=== PATIENT | female | born 1970 | race Hispanic/Latino ===

== ENCOUNTER 2017-02-14 19:30 | Inpatient (IN) | payer OTHER ==
[~2017-02-14] VITALS: Ht 160 cm; Wt 83.7 kg
[2017-02-14 19:34] VITALS: BP 202/104; PULSE 73; RESP 18; O2SAT 97
--- NOTE | 2017-02-14 21:01 | ED.REPORT ---
HPI-Abd Pain F 40 and Over Date of Service Feb 14, 2017 ED Provider: Lita Zamora DO Pt is a 47 year old female with a history of HTN who presents to the ED complaining of abdominal pain onset this morning. She c/o associated nausea, vomiting (8x), and constipation. She denies any other symptoms. Nursing Notes Stated Complaint: STOMACH PAIN Chief Complaint: Female Abdominal Pain Nursing Notes Reviewed: Yes Allergies: Coded Allergies: No Known Allergies (Unverified Allergy, Unknown, 02/14/17) No Active Prescriptions or Reported Meds General Time Seen by MD: 21:01 Chief Complaint Abdominal pain Hx Obtained From: Patient Arrived By: Walk-in Sudden in Onset?: No Onset Occurred: 5 - 8 hours ago Symptom Duration: Since onset Location: : Diffuse Quality: Itching Radiation: : Does not radiate Severity: Current: Moderate Severity: Maximum: Moderate Recent Healthcare: No recent doctor visit, No recent hospitalization Similar Sx Previous: No Past Medical History Past Medical History Notes: Past Medical History 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 Physical Exam Vital Signs Vital Signs (First) Date Time Temp Pulse Resp B/P Pulse Ox O2 Delivery O2 Flow Rate FiO2 02/14/17 19:34 36.7 73 18 202/104 97 Room Air Initial VS: Reviewed Head / Eyes: Atraumatic, Normocephalic Extremities: Vascular intact, Neuro intact Skin: Warm, Dry, No cyanosis Neurologic: Alert, Oriented, Nonfocal Psychiatric: Mood/affect normal, Behavior normal General/Constitutional: Awake, Alert, Cooperative, Not toxic appearing Distress / Hydration: Positive: Distress moderate Tachy "ai"s and bravy "oh"s. Respiratory / Chest: Atraumatic, Breath sounds NL, Breath sounds = bilat Cardiovascular: Heart rate NL, Regular rhythm, Heart sounds NL Abdomen: Atraumatic Diffuse tenderness mainly in LLQ. Back: Atraumatic, Full range of motion Interpretation & Diagnostics Lab Results Interpretation Result Diagram: 02/14/17 2100 02/14/17 2100 Test 02/14/17 21:00 02/14/17 22:12 02/14/17 22:20 White Blood Count 20.2th/mm3 (3.8-10.1) Red Blood Count 4.88mil/mm3 (3.90-5.20) Hemoglobin 14.8g/dL (12.0-15.6) Hematocrit 41.0% (35.0-46.0) Mean Corpuscular Volume 84.0fL (81-100) Mean Corpuscular Hemoglobin 30.3pg (27.0-35.0) Mean Corpuscular Hemoglobin Concent 36.1% (32.0-37.0) Red Cell Distribution Width 12.7% (12.3-15.4) Platelet Count 232bil/L (150-400) Neutrophils (%) (Auto) 89.3% (40-74) Lymphocytes (%) (Auto) 5.8% (14-46) Monocytes (%) (Auto) 4.6% (4-12) Eosinophils (%) (Auto) 0% (0-5) Basophils (%) (Auto) 0% (0-3) Sodium Level 134mEq/L (134-144) Potassium Level 3.0mEq/L (3.5-5.2) Chloride Level 95mEq/L (97-108) Carbon Dioxide Level 23mmol/L (18-29) Blood Urea Nitrogen 8mg/dL (6-24) Creatinine 0.54mg/dL (0.57-1.00) Estimat Glomerular Filtration Rate 175mL/min (>59) Glucose Level 152mg/dL (60-99) Calcium Level 8.8mg/dL (8.5-10.1) Magnesium Level 1.6mg/dL (1.6-2.6) Total Bilirubin 0.8mg/dL (0.0-1.2) Aspartate Amino Transf (AST/SGOT) 20U/L (0-50) Alanine Aminotransferase (ALT/SGPT) 22U/L (0-32) Alkaline Phosphatase 102U/L (25-150) Total Protein 7.5g/dL (6.4-8.4) Albumin 3.9g/dL (3.4-5.0) Lipase 12U/L (13-60) Hold Campuzano Top Tube Received (Received) Hold Urine Received (Received) Urine Color Yellow (YELLOW) Urine Appearance Clear (CLEAR,HAZY) Urine pH 7.0 (5.0-8.0) Urine Specific [place] 1.015 (1.003-1.035) Urine Protein 30mg/dL (NEG,TRACE) Urine Glucose (UA) Negativemg/dL (NEGATIVE) Urine Ketones 15mg/dL (NEGATIVE) Urine Occult Blood Small (NEGATIVE) Urine Nitrite Negative (NEGATIVE) Urine Bilirubin Negative (NEGATIVE) Urine Urobilinogen Normalmg/dL (NORMAL) Urine Leukocyte Esterase Negative (NEGATIVE) Urine RBC 3-10/hpf (0-2) Urine WBC 0-5/hpf (0-5) Urine Epithelial Cells Occasional/hpf (NONE-MOD) Urine Crystals None seen (NONE SEEN) Urine Bacteria Few/hpf (NONE-FEW) Urine Hyaline Casts Rare/lpf (NONE) Urine Granular Casts None seen (NONE SEEN) Urine Waxy Casts None seen (NONE SEEN) Urine Red Blood Cell Casts None seen (NONE SEEN) Urine White Blood Cell Casts None seen (NONE SEEN) Urine Mucus None seen (None Seen) Urine Trichomonas None seen (NONE SEEN) Urine Yeast None (NONE SEEN) Urinalysis Comment None Urine Culture Reflexed Not indicated CT Abd / Pelvis Interpretation Acute non-perforated appendicitis Interpretation / Wet Read by: Interpret - Radiologist, Discussed w radiologist Re-Eval/Medical Decision Med Decision/Clinical Course 47-year-old female presents with insidious onset right lower quadrant abdominal pain. Seemed to start last night and possibly this morning. She presented with moderate to severe tenderness. No clinical peritonitis however. White count was 24,[address] scan showed acute nonperforated appendicitis. Mrs. Abbott was fluid resuscitated. Her pain was adequately treated. She received IV Zosyn. I consulted with Dr. Boogie. The plan will be admission for appendectomy in the morning. I explained this to Mrs. Abbott and her family. Her daughter served as otr driver. I will also use the otr driver service. Source of Hx: Old records Re-Evaluation/Progress : Time of Eval: 22:53 )( Re-Eval Abdomen: Soft Re-Evaluation/Progress Note: Pt rechecked. Informed pt of plan for admission. Pt understands and agrees with plan for admission. All questions were answered. Consultation #1: Call Returned at: 22:55 Manager Market Research: Agrees with eval, Agrees with plan Note: Consult with on-call radiologist. He indicated that the scan shows acute non-perforated appendicitis. Consultation #2: Referral / Consult Name: Jessie Boogie MD Consulted With: Surgeon Manager Market Research: Will see patient, Agrees with eval, Agrees with plan Note: Consult with surgeon. She will see the patient in the morning. Consultation #3: Referral / Consult Name: Juan Gabriel MD Consulted With: Hospitalist Call Returned at: 23:12 Manager Market Research: Will see patient, Agrees with eval, Agrees with plan, Accepts admit Counseled Regarding: Diagnosis, Lab results, Need for admission Discharge & Departure Primary Impression: Acute appendicitis Acute appendicitis type: unspecified acute appendicitis type Qualified Code: K35.80 - Unspecified acute appendicitis Disposition: ADMITTED TO HOSPITAL Discharge Condition All VS Reviewed: Yes Condition: Stable Referrals: Heraclio Patten MD (PCP) Scribe Attestation Portions of this note were transcribed by Khadijah Redd. I, Dr. London personally performed the history, physical exam and medical decision-making; I reviewed and confirmed the accuracy of the information in the transcribed note. Signed by: Carlos Campos, 02/14/17 and 22:50. copies to: Heraclio Patten MD, Todd P DO Feb 14, 2017 21:01 Khadijah Gill Feb 14, 2017 22:05
[2017-02-14] MEDS ORDERED: Ondansetron 2 mg/mL 2 mL Inj ONE (21:19)
[2017-02-14 21:20] LABS: BASOPHILS % (AUTO) 0 % (0-3); EOSINOPHILS % (AUTO) 0 % (0-5); MONOCYTES % (AUTO) 4.6 % (4-12); Mean Corpuscular Hemoglobin 30.3 pg (27.0-35.0); NEUTROPHILS % (AUTO) 89.3 % (40-74); Platelet Count 232 bil/L (150-400)
[2017-02-14] MEDS ORDERED: 0.9% Sodium Chloride 1,000 ML IV SCH (21:25)
[2017-02-14] MEDS ORDERED: Piperacillin-Tazo 3.375 Gm Inj 3.375 GM in Dextrose 5% Minibag Plus 50 ML IV ONE (21:25)
[2017-02-14] MEDS: HYDROmorphone 0.5 mg/0.5 mL iSecure Syringe IVPUSH PRN ×2 (21:30→22:12)
[2017-02-14 21:43] LABS: Magnesium 1.6 mg/dL (1.6-2.6)
[2017-02-14 22:49] LABS: APPEARANCE,URINE CLEAR (CLEAR,HAZY); COLOR,URINE YELLOW (YELLOW); OCCULT BLOOD,URINE SMALL (NEGATIVE); UROBILINOGEN,URINE NORMAL (NORMAL)
[2017-02-14] MEDS ORDERED: Alum-Mag Hydrox-Simeth 30 mL Suspension PO PRN (23:05)
[2017-02-14] MEDS ORDERED: Ondansetron 2 mg/mL 2 mL Inj IVPUSH PRN ×2 (23:05)
[2017-02-14 23:38] VITALS: BP 154/78; PULSE 102; RESP 16; O2SAT 96
[2017-02-15] VITALS (17 sets, daily range): BP systolic 100–154; BP diastolic 56–83; PULSE 68–102; RESP 10–18; O2SAT 93–100
[2017-02-15] MEDS: HYDROmorphone 0.5 mg/0.5 mL iSecure Syringe IVPUSH PRN ×5 (00:29→10:53)
[2017-02-15] MEDS: Lactated Ringer's 1,000 ML IV SCH ×3 (00:29→15:01)
[2017-02-15] MEDS ORDERED: Piperacillin-Tazo 3.375 Gm Inj 3.375 GM in Dextrose 5% Minibag Plus 50 ML IV SCH (00:30)
--- NOTE | 2017-02-15 03:16 | NUR ---
Arrival to Unit Patient arrived to unit at 0015 via ED gurney. Patient attempted to scoot self over to hospital bed, but due to severe pain, a slider board was needed. States pain to be 9/10 abdominal pain. .5mg Dilaudid IVP given for pain, which appeared to provide some relief. Denies CP, SOB, N/V. IV in right upper arm is infusing LR @100cc/hr. Will continue to monitor, and continue Q1 hour checks. Addendum: 02/15/17 at 0603 by TOMI HOLLOWAY RN Patient has been NPO since 0015
[2017-02-15] MEDS: Piperacillin-Tazo 3.375 Gm Inj 3.375 GM in Dextrose 5% Minibag Plus 50 ML IV SCH ×3 (05:49→20:32)
[2017-02-15] MEDS ORDERED: Famotidine Inj 20 MG in IV Premix 1 EACH IV STA (08:45)
[2017-02-15] MEDS ORDERED: Sodium Citrate-Citric Acid 30 mL Solution PO STA (08:45)
--- NOTE | 2017-02-15 08:50 | DRSVH ---
PROCEDURE: CT ABDOMEN AND PELVIS WITH CONTRAST ([id number]) INDICATIONS: diffuse pain, 20WBC count TECHNIQUE: After the administration of intravenous contrast, 5 mm thick sections acquired from the diaphragm to the symphysis. 5 mm coronal and sagittal reformats were acquired. For radiation dose reduction, the following was used: automated exposure control, adjustment of mA and/or kV according to patient siz e. COMPARISON: None. FINDINGS: Image quality: Excellent. ABDOMEN: Lung bases: Lung bases are clear. Heart size is normal. Solid organs: Liver and spleen are normal in size and enhancement. Fatty infiltration of the liver i s noted. Gallbladder is within normal limits. Biliary system is non dilated. Pancreas enhances nor capri. 1.4 cm left adrenal nodule is noted left adrenal nodule has density measurements of 50 HU. Kid neys demonstrate normal size and enhancement, without hydronephrosis. Peritoneum and bowel: Bowel loops demonstrate normal wall thickness and caliber. Small amount free fluid noted in the cul-de-sac of the pelvis. No free air. The appendix is enlarged measuring 1.7 cm i n maximum diameter. The appendix contains small appendicoliths. Mild inflammatory changes noted adjac ent to the enlarged appendix. Nodes and vessels: No retroperitoneal or mesenteric adenopathy by size criteria. Aorta and inferior vena cava are normal in size. Miscellaneous: No ventral hernias. PELVIS: Genitourinary: Bladder wall thickness is normal. Intrauterine device noted. Miscellaneous: No inguinal hernias or adenopathy. Bones: No suspicious bony lesions. No vertebral body compression fractures. IMPRESSION: 1. Findings compatible with acute appendicitis. 2. 1.4 cm soft tissue density left adrenal nodule. Recommend dedicated CT scan or MRI scan of the adr enal glands for definitive characterization. 3. Hepatic steatosis. Dictated by: Madelin Archibald MD, PhD on 02/15/2017 at 8:33 Approved by: Madelin Archibald MD, PhD on 02/15/2017 at 8:48
--- NOTE | 2017-02-15 08:50 | HP ---
[address] [address] HISTORY AND PHYSICAL PATIENT: AMIE WALKER : 1970 MR#: [id number] ADMIT: 02/14/2017 JOB ID: [id number] DATE OF SERVICE: 02/15/2017 CHIEF COMPLAINT: Abdominal pain. HISTORY OF PRESENT ILLNESS: The patient is a 47-year-old, woman who presented to the emergency department last night. She had developed sudden onset of severe abdominal pain that started yesterday morning. The pain is mostly located on her right side; although this morning, she is describing diffuse abdominal pain. She also reportedly had approximately eight episodes of vomiting yesterday. She has had off and on fevers. She has not had any blood in her stool. In the emergency department, she underwent a CT scan of the abdomen and pelvis. The report from that CT is not available, but it shows a markedly dilated appendix with appendicolith, as well as a small amount of free fluid in the pelvis and some periappendiceal fat stranding. Findings are consistent with acute appendicitis. PAST MEDICAL HISTORY: Hypertension. PAST SURGICAL HISTORY: None. MEDICATIONS: Home medicines are not available, entered as no reported medications. ALLERGIES: No known drug allergies. SOCIAL HISTORY: She denies alcohol or illicit drug use. She is a nonsmoker. 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 FAMILY HISTORY: No family history of inflammatory bowel disease. REVIEW OF SYSTEMS: A 10-point review of systems is negative, except as described in history of present illness, specifically no chest pain or shortness of breath. PHYSICAL EXAMINATION: Body mass index 32.7, temperature 36.8, pulse 77, blood pressure 151/74, saturation 96% on room air. In general, she is uncomfortable appearing, lying in bed. HEENT: She has a washcloth on her forehead. Sclerae are anicteric. Neck: No jugular venous distention. Chest: Clear to auscultation bilaterally. Heart: Regular rate and rhythm. No murmurs. Abdomen is diffusely tender with guarding and positive rebound tenderness. She is most tender on the right side; although, she does have diffuse peritonitis. There are no palpable masses. There are no hernias. Extremities: No edema. Neuro: No deficits. Psychiatric: Affect is appropriate. LABORATORY DATA: White count is 20.2, hematocrit 41.0, platelets 232, creatinine 0.54, glucose 152. IMAGING: As described in HPI. ASSESSMENT/PLAN: A 47-year-old woman with acute appendicitis with an appendicolith and diffuse peritonitis. I have recommended that she undergo a laparoscopic appendectomy. Technical aspects of surgery were discussed. Risks were discussed, including, but not limited to, bleeding, infection, injury to other structures, deep intra-abdominal infections. The typical postoperative course was described depending on findings at the time of surgery. Broad-spectrum antibiotics have been started. She will be kept n.p.o. until surgery today.
[2017-02-15] MEDS ORDERED: Dexamethasone 4 mg/mL Inj ONE (09:22)
[2017-02-15] MEDS ORDERED: fentaNYL-PF 50 mCg/mL 2 mL Inj ONE (09:22)
[2017-02-15] MEDS ORDERED: Succinylcholine Chloride 20 mg/mL 5 mL Inj ONE (09:22)
[2017-02-15] MEDS ORDERED: Rocuronium 10 mg/mL 5 mL Inj ONE (09:22)
[2017-02-15] MEDS ORDERED: Neostigmine 1 mg/mL 10 mL Inj ONE (09:22)
[2017-02-15] MEDS ORDERED: HYDROmorphone 1 mg/mL Inj ONE (09:22)
[2017-02-15] MEDS ORDERED: Ondansetron 2 mg/mL 2 mL Inj ONE (09:22)
[2017-02-15] MEDS ORDERED: Propofol 10,000 mCg/mL 20 mL Inj ONE (09:22)
[2017-02-15] MEDS ORDERED: Glycopyrrolate 0.2 MG/ML 1mL Inj ONE (09:22)
--- NOTE | 2017-02-15 11:15 | NUR ---
Off unit Pt off unit to OR at 1100. Report given to JAYDE Brar. Pt VSS, ANGELINA, A&O x 3, premedicated for pain prior to leaving. Pt able to transfer self with assistance to [facility]. French speaking only, daughter with pt.
--- NOTE | 2017-02-15 11:15 | PCM.HPANE ---
Patient Data Date of Service: Feb 15, 2017 Surgeon Admitting Provider:Jessie Boogie MD Attending Provider:Jessie Boogie MD Primary Care Physician:Heraclio Patten MD Other Provider: Reason for Visit Acute Appendicitis Ht/WT & BMI Height (Feet): 5 Height (Inches): 3.00 Weight (Kilograms): 83.700 Body Mass Index 32.70 Allergies Coded Allergies: No Known Allergies (Unverified Allergy, Unknown, 02/14/17) Past Anesthesia History Anesthesia History: Denies:: Anesthesia Reactions Diabetes History Hx Diabetes?: No MRSA MRSA: No Medications Hypertension Medication: Yes (Has not taken antihypertensives in a couple months) Home Meds Incl Beta Ten: No No Active Prescriptions or Reported Meds History History of ENT Problems?: No HEENT History: Denies:: Cataracts Dysphagia Glaucoma Sinus Problem Denture Type: None Teeth Condition: Within Normal Limits Hx of Heart Problems?: Yes Cardiovascular History: Positive for:: Hypertension (amlodipine, carvedilol) Denies:: Cardiac Surgery Chest Pain Congestive Heart Failure Edema Heart Murmur Irregular Heartbeat Pacemaker Thrombophlebitis Hx of Respiratory Problem?: No Respiratory History: Denies:: Asthma COPD Chest Surgery Dyspnea Emphysema Hemoptysis Pneumonia Tuberculosis Hx Neurologic Problems?: No Neurological History: Denies:: Alzheimer's Disease CVA Dementia Dizziness Headaches Parkinson's Disease Seizures Hx of GI Problems?: Yes Other History/Comment Acute appendicitis Hx of Problems?: No Genitourinary History: Denies:: Kidney Stones Urinary Tract Infection Female Hx: Denies:: Currently Endometriosis Pelvic Inflammatory Problems with Breasts? Hx Musculoskeletal Problems?: No Musculoskeletal History: Denies:: Back Injury Joint Replacement Musculoskeletal Trauma Psycho Social History: Denies:: Anxiety Bipolar Disorder Hx Depression Suicide Attempt Hx Surgeries?: No Other History: Positive for:: Hospitalization (2 CHILDREN) Denies:: Cancer Thyroid Disease History Blood Transfusions: Positive for:: Accept Blood Products? Denies:: Blood Transfuse Reaction Blood Transfusions Hx Diabetes: No Hx Alcohol Use: NoHx Substance Use: No Smoking Status: Never Smoker Have You Smoked inLast 12 mo: No Stop/Bang Treated for Sleep Apnea?: No Do You Have a CPAP Machine?: No S-Snoring: Do You Snore Loudly: Yes T-Tired: feel tired, fatigued: Yes O-Obsered: Observed not breath: No P-Blood Pressure: treated: Yes B- Body Mass Index > 35 kg/m2: No A- Age over 50: No N- Neck Large Circumference: No G- Gender Male: No JOHAN Total Score: 3 JOHAN Risk Assessment: Low Risk, <3 Yes Risk Assessment Category Category 1A: Patient has history of documented sleep apnea, and HAS NOT received any narcotic, sedative or anesthesia administration during this stay. Category 1B: Patient has history of documented sleep apnea, and HAS received any narcotic , sedative or anesthesia administration during this stay Category 2: Patient has SUSPECTED Obstructive Sleep Apnea, and HAS received any narcotic , sedative or anesthesia administration during this stay. Category 3: Patient has SUSPECTED Obstructive Sleep Apnea and HAS NOT received narcotic, sedative or anesthesia administration during this stay. Category 4: Outpatient in Procedural Areas with known sleep apnea or who screen positive for High Risk via the STOP/BANG questionnaire. Exam Exam Vital Signs Vital Signs Date Time Temp Pulse Resp B/P Pulse Ox O2 Delivery O2 Flow Rate FiO2 02/15/17 08:59 37.6 102 16 151/83 95 Room Air 02/15/17 04:35 36.8 77 17 151/74 96 Room Air General Appearance: Alert, Oriented X3, Cooperative, No Acute Distress HEENT/AIRWAY: MP 3 Lungs: Clear to Auscultation, Normal Air Movement Heart: Exam Unremarkable, Regular Rate/Rhythm, No Murmurs/Rubs/Gallops Meds/Labs/Diagnostics Admission Meds Current Medications Ondansetron HCl 4 mg 4 mg STK-MED ONCE .ROUTE Last administered on 02/14/17 21 :20; Start 02/14/17 at 21:19; Stop 02/14/17 at 21:20; Status DC Piperacillin Sod/ Tazobactam Sod 3.375 gm/Dextrose/ Water 50 ml @ 100 mls/hr ONCE ONCE IV Last administered on 02/14/17 22:27; Start 02/14/17 at 21:25; Stop 02/14/17 at 21:54; Status DC Sodium Chloride 1,000 ml @ 0 mls/hr Q0M IV Last administered on 02/14/17 21: 15; Start 02/14/17 at 21:25; Stop 02/15/17 at 01:34; Status DC Lactated Ringer's 1,000 ml @ 100 mls/hr Q10H IV Last administered on 00:29; Start 02/14/17 at 23:04 Piperacillin Sod/ Tazobactam Sod/ Dextrose/Water (Zosyn 3.375 Gm Inj/D5W Minibag Plus) 50 ml @ 12.5 mls/hr Q8H IV Last administered on 02/15/17 05:49 ; Start 02/15/17 at 06:00 Labs Test 02/14/17 21:00 02/14/17 22:12 02/14/17 22:20 White Blood Count 20.2th/mm3 (3.8-10.1) Red Blood Count 4.88mil/mm3 (3.90-5.20) Hemoglobin 14.8g/dL (12.0-15.6) Hematocrit 41.0% (35.0-46.0) Mean Corpuscular Volume 84.0fL (81-100) Mean Corpuscular Hemoglobin 30.3pg (27.0-35.0) Mean Corpuscular Hemoglobin Concent 36.1% (32.0-37.0) Red Cell Distribution Width 12.7% (12.3-15.4) Platelet Count 232bil/L (150-400) Neutrophils (%) (Auto) 89.3% (40-74) Lymphocytes (%) (Auto) 5.8% (14-46) Monocytes (%) (Auto) 4.6% (4-12) Eosinophils (%) (Auto) 0% (0-5) Basophils (%) (Auto) 0% (0-3) Sodium Level 134mEq/L (134-144) Potassium Level 3.0mEq/L (3.5-5.2) Chloride Level 95mEq/L (97-108) Carbon Dioxide Level 23mmol/L (18-29) Blood Urea Nitrogen 8mg/dL (6-24) Creatinine 0.54mg/dL (0.57-1.00) Estimat Glomerular Filtration Rate 175mL/min (>59) Glucose Level 152mg/dL (60-99) Calcium Level 8.8mg/dL (8.5-10.1) Magnesium Level 1.6mg/dL (1.6-2.6) Total Bilirubin 0.8mg/dL (0.0-1.2) Aspartate Amino Transf (AST/SGOT) 20U/L (0-50) Alanine Aminotransferase (ALT/SGPT) 22U/L (0-32) Alkaline Phosphatase 102U/L (25-150) Total Protein 7.5g/dL (6.4-8.4) Albumin 3.9g/dL (3.4-5.0) Lipase 12U/L (13-60) Hold Campuzano Top Tube Received (Received) Hold Urine Received (Received) Urine Color Yellow (YELLOW) Urine Appearance Clear (CLEAR,HAZY) Urine pH 7.0 (5.0-8.0) Urine Specific [place] 1.015 (1.003-1.035) Urine Protein 30mg/dL (NEG,TRACE) Urine Glucose (UA) Negativemg/dL (NEGATIVE) Urine Ketones 15mg/dL (NEGATIVE) Urine Occult Blood Small (NEGATIVE) Urine Nitrite Negative (NEGATIVE) Urine Bilirubin Negative (NEGATIVE) Urine Urobilinogen Normalmg/dL (NORMAL) Urine Leukocyte Esterase Negative (NEGATIVE) Urine RBC 3-10/hpf (0-2) Urine WBC 0-5/hpf (0-5) Urine Epithelial Cells Occasional/hpf (NONE-MOD) Urine Crystals None seen (NONE SEEN) Urine Bacteria Few/hpf (NONE-FEW) Urine Hyaline Casts Rare/lpf (NONE) Urine Granular Casts None seen (NONE SEEN) Urine Waxy Casts None seen (NONE SEEN) Urine Red Blood Cell Casts None seen (NONE SEEN) Urine White Blood Cell Casts None seen (NONE SEEN) Urine Mucus None seen (None Seen) Urine Trichomonas None seen (NONE SEEN) Urine Yeast None (NONE SEEN) Urinalysis Comment None Urine Culture Reflexed Not indicated Plan Impression Patient chart reviewed, patient interviewed and anesthestic plan with risks, benefits, and alternatives discussed, and informed consent obtained. NPO per Anesth. Guidelines: Yes ASA Physical Status: ASA2 Mod Systemic Disease Anesthetic Plan: GA Bene/Risks/Altern/Consents: Yes HP Complete Prior to Induction: Yes Bienvenido Murillo MD Feb 15, 2017 11:15
[2017-02-15] MEDS ORDERED: Lactated Ringer's 1,000 ML IV ONE (11:20)
[2017-02-15] MEDS ORDERED: Lactated Ringer's 1,000 ML IV SCH (11:44)
[2017-02-15] MEDS ORDERED: Lactated Ringer's 500 ML IV PRN (11:44)
[2017-02-15] MEDS ORDERED: Bupivacaine-MPF 0.5% W/EPI 30 mL Inj INFILTRATE ONE (11:44)
[2017-02-15] MEDS ORDERED: EPHEDrine Sulfate 50 mg/mL Inj IVPUSH PRN (11:45)
[2017-02-15] MEDS ORDERED: Phenylephrine 10,000 mCg/mL Inj IVPUSH PRN (11:45)
[2017-02-15] MEDS ORDERED: fentaNYL-PF 50 mCg/mL 2 mL Inj IVPUSH PRN (11:45)
[2017-02-15] MEDS ORDERED: Ondansetron 2 mg/mL 2 mL Inj IVPUSH PRN (11:45)
[2017-02-15] MEDS ORDERED: MetoCLOpramide 5 mg/mL 2 mL Inj IVPUSH PRN (11:45)
[2017-02-15] MEDS ORDERED: HYDROmorphone 1 mg/mL Inj IVPUSH PRN (11:45)
--- NOTE | 2017-02-15 13:02 | PCM.SURGOP ---
Surgical Operative Report Date of Service: Feb 15, 2017 Pre Operative Diagnosis Acute appendicitis Post Operative Diagnosis Acute perforated appendicitis with feculent and diffuse purulent peritonitis Procedure: Laparoscopic appendectomy Surgeon and Traffic Analysis Technician: Surgeon: Josue Garcia MD Assistants: Toni Crawford PA-C Indication for Procedure 47-year-old woman who presented to the emergency department with 24 hours of abdominal pain and vomiting. She was febrile. She had a white blood cell count of 20,000. Her imaging studies showed findings consistent with acute appendicitis with some free fluid in the pelvis. She had diffuse peritonitis on abdominal exam. After discussion of risks and benefits, she agreed to proceed with laparoscopic appendectomy. Findings: The appendix was perforated near the base. There was feculent peritonitis in the region of the appendix, and diffuse purulent peritonitis. Procedure Details After smooth induction of general endotracheal anesthesia, the patient was placed in the supine position with the left arm tucked. The abdomen was prepped and draped in wide sterile fashion. A procedural pause was performed according to the SCOAP checklist, and all were found to be in agreement. A curvilinear infraumbilical incision was made. Dissection was carried down to electrocautery until the midline fascia was incised vertically and the peritoneal cavity was entered without difficulty. Pneumoperitoneum was established. Two additional ports were placed under visualization. A 5 mm port was placed in the midline above the symphysis pubis, and a 12 mm port in the left lower quadrant, lateral to the inferior epigastric vessels. The patient was placed head down with the right side up. The small bowel was retracted, which was difficult because she had significant dilation of small bowel loops. In order to provide adequate exposure of the appendix, a fourth port needed to be placed, which was placed at the level of the umbilicus in the right abdomen. There was feculent peritonitis around the appendix, with several small stool balls. There was diffuse purulent peritonitis. The mesoappendix was isolated and divided with a vascular load of the Endo ALFREDO 45 mm stapler. There was some bleeding from the mesoappendix, which was controlled with electrocautery. The appendix was then mobilized and dissected from the surrounding structures until the base of the appendix was skeletonized. There was a perforation, fairly close to the appendiceal base, but there was healthy stump for application of the stapler. The Endo ALFREDO stapler was used with a 45 mm blue load to divide the appendiceal stump. The appendix was placed into an Endo Catch bag. The right lower quadrant and pelvis was irrigated and suctioned extensively with saline. The appendiceal stump was intact and the mesoappendix was hemostatic. The appendix was removed and passed off the field for permanent pathology. A 19 Yoruba round PETERSON drain was brought out through the right mid abdominal port site, positioned along the appendiceal fossa and into the pelvis, and secured to the skin with a 2-0 nylon stitch. The 12 mm port was removed. The fascia of the 12 mm port site was closed using an inlet closure device with an 0 Vicryl suture. The remaining ports were removed under visualization and pneumoperitoneum was released. The skin incisions were closed using running 4-0 Monocryl subcutaneous stitches. Steri-Strips and sterile dressings were applied. At the end of the case all needle and sponge counts were correct 2. The patient was awakened from anesthesia without difficulty, and taken to the recovery room in satisfactory condition, having tolerated the procedure well. Complications There were no periprocedural complications identified. Surgical Specimen Removed: Yes Specimen sent to Pathology: Yes Surgical Specimen description: Appendix Anesthetic Plan: GA Grafts, Implants: None Output, Estimated Blood Loss: 50 Blood Administration during jeffery: No Drains: PETERSON Drain #1 Catheters: None copies to: Heraclio Patten MD, Joshua D MD Feb 15, 2017 13:02
--- NOTE | 2017-02-15 13:19 | PCM.ANEP1 ---
Post Anesthesia PACU Phase 1 Assessment Date of Service: Feb 15, 2017 Vital Signs 36.5 122/56 92 15 97% FM Anesthetic Administered: GA Level of Alertness: Sleeping, hard to arouse ALFARO's with Equal Strength: Yes Pain: No Pain Scale Score: 0 Nausea or Vomiting: No CV Function & Hydration Stable: Yes Airway Device: Oxygen Delivery: Simple Mask Lungs: Clear to Auscultation, Normal Air Movement PACU Phase 2 Assessment Complications: No Follow up Care: No Patient Instructions Provided: Yes Bienvenido Murillo MD Feb 15, 2017 13:18
[2017-02-15] MEDS ORDERED: 0.9% Sodium Chloride 250 ML ONE (14:20)
[2017-02-15] MEDS: Acetaminophen IV 1,000 MG in IV Premix 1 EACH IV SCH ×2 (14:22→20:31)
--- NOTE | 2017-02-15 14:52 | NUR ---
Post op Pt back on unit at 1410, able to slide self over to bed. SCD's in place, O2 at 2L NC, 3 lap sites CDI with bandaids and right PETERSON drain sero-sanguineous output. Pt drowsy, but O x 3, VSS, ALFARO. Pain 08/29. IV fluids infusing in surgical tubing. Bed in low, call light in reach, continue q1hour monitoring.
--- NOTE | 2017-02-15 15:14 | NUR ---
Social Work- Screen Note/ Readiness for Discharge Data: EMR reviewed. Pt is a 47 year old female admitted 02/14/17 under observation for acute appendicitis per H&P. Pt in OR today. Pt's insurance is [employer] and PCP is Heraclio Patten MD. Pt's NOK is Yasmeen Asif, friend, . Per chart review, pt resides in [place] where she is Independent at baseline. Pt anticipated to discharge tomorrow. SW anticipates pt to discharge home via POV. No discharge needs anticipated. SW will continue to follow. Assessment: Pt who is independent at baseline. Plan: Pt likely to discharge tomorrow. Pt is independent at baseline. SW anticipates pt to discharge home via POV. No discharge needs anticipated. SW will continue to follow. EDILBERTO Shin
[2017-02-15] MEDS: HYDROmorphone PCA 0.2 mg/mL 30 mL Inj IV PRN (16:42)
[2017-02-16] VITALS (8 sets, daily range): BP systolic 121–162; BP diastolic 67–96; PULSE 64–69; RESP 14–18; O2SAT 96–99
[2017-02-16] MEDS: Acetaminophen IV 1,000 MG in IV Premix 1 EACH IV SCH ×2 (02:44→09:13)
[2017-02-16] MEDS: Piperacillin-Tazo 3.375 Gm Inj 3.375 GM in Dextrose 5% Minibag Plus 50 ML IV SCH ×3 (04:01→20:22)
--- NOTE | 2017-02-16 04:38 | NUR ---
IV/Itching This evening when administering IV Tylenol, patients upper right arm, where IV is placed, appeared more swollen and tight. Patient states that she did not feel anything or notice the swelling. IV DC'd and warm compress applied. No redness is present at this time, only a bruise at the puncture site. New IV placed in left hand and is asymptomatic/intact/patent. Later in the shift patient complained of itching. 25mg Benadryl given IVP, and upon reassessment patient states some relief. Will continue to monitor and continue Q1 hour checks.
[2017-02-16] MEDS: Lactated Ringer's 1,000 ML IV SCH (05:04)
[2017-02-16 05:38] LABS: BASOPHILS % (AUTO) 0.1 % (0-3); EOSINOPHILS % (AUTO) 0.1 % (0-5); MONOCYTES % (AUTO) 3.2 % (4-12); Mean Corpuscular Hemoglobin 30.1 pg (27.0-35.0); Mean Corpuscular Volume 87.1 fL (81-100); NEUTROPHILS % (AUTO) 88.4 % (40-74); Platelet Count 193 bil/L (150-400)
[2017-02-16] MEDS ORDERED: KCl 40 mEq/D5W 500 mL 40 MEQ in IV Premix 1 EACH IV ONE (07:30)
--- NOTE | 2017-02-16 08:13 | PROG NOTE ---
[address] [address] PROGRESS NOTE PATIENT: AMIE WALKER : 1970 MR#: [id number] ADMIT: 02/14/2017 JOB ID: [id number] DATE: 02/16/2017 SUBJECTIVE: The patient is seen in followup. She is seen with the video certifier. She feels significantly better but still does complain of some right-sided abdominal pain. She has no nausea. She has not passed any flatus. She is urinating. Her IV infiltrated overnight and so she did not get the full amount of IV fluids. OBJECTIVE: Temperature 36.3, pulse 64, blood pressure 121/67, saturation 97% on room air. In general, she is resting in bed in no acute distress. Chest is clear. Heart: Regular rate and rhythm. No murmurs. Abdomen is soft, mildly distended. Her incisions are clean with no erythema. Her PETERSON drain is putting out cloudy turbid fluid, output overnight was 105 cc. LABORATORIES: White count is 16.5, hematocrit 35.9, platelets 193, potassium 3.1. BUN 27, creatinine 1.68, glucose 114. Albumin 2.9. ASSESSMENT AND PLAN: A 47-year-old woman with a perforated appendicitis with focal feculent peritonitis and diffuse purulent peritonitis, status post laparoscopic appendectomy. She will expectedly have a somewhat gisel course. A postoperative ileus is completely expected in this setting. It does seem that she has been inadequately fluid resuscitated with elevated creatinine today. We will give her an extra fluid challenge today. She will be given a clear liquid diet. She will remain on a FOUNTAIN HELPER. Broad-spectrum antibiotics will be continued, and most likely she will need a two week course. She understands that she is at fairly high risk for postoperative intra-abdominal abscess.
--- NOTE | 2017-02-16 10:29 | NUR ---
Social Work: Discharge D: EMR reviewed. Pt is on day 2 of hospitalization. Pt to discharge home via POV. No discharge needs anticipated. SW will continue to follow. A: Pt who is independent at baseline. P: Pt to discharge home today. Pt is independent at baseline. SW anticipates pt to discharge home via POV. No discharge needs anticipated. SW will continue to follow. EDILBERTO Galvan
[2017-02-16] MEDS: D5 0.9% NaCl + KCl 20 mEq/L 1,000 ML IV SCH ×2 (11:05→22:20)
[2017-02-16] MEDS: HYDROmorphone PCA 0.2 mg/mL 30 mL Inj IV PRN (11:16)
[2017-02-16] MEDS ORDERED: Acetaminophen IV 1,000 MG in IV Premix 1 EACH IV ONE (15:00)
--- NOTE | 2017-02-16 19:26 | NUR ---
Activity Pt able to get up and ambulate to BR. Pain well controlled using HISTORY DEPARTMENT CHAIR. This afternoon HISTORY DEPARTMENT CHAIR battery must have and only read that pt had 0.4mg during shift, but it was reading more mg given prior to that. Pt is having itching and scratched upper buttocks to the point it bled, medications given. New IV obtained for multiple medications going IV. Potassium was run at 50ml/hr because pt was having pain in IV site. Bed in low, call light in reach, care continues.
[2017-02-17] VITALS (14 sets, daily range): BP systolic 146–204; BP diastolic 87–113; PULSE 68–101; RESP 14–18; O2SAT 96–98
[2017-02-17] MEDS: D5 0.9% NaCl + KCl 20 mEq/L 1,000 ML IV SCH ×3 (03:00→17:03)
[2017-02-17] MEDS: Piperacillin-Tazo 3.375 Gm Inj 3.375 GM in Dextrose 5% Minibag Plus 50 ML IV SCH ×3 (03:27→20:29)
--- NOTE | 2017-02-17 06:34 | NUR ---
NOC PT alert and oriented. PRimarily marshallese speaking, but understands Azeri well. Dtr at bedside for interpretation if needed. PT calls appropriately and is a 1 person SBA to BR. Dilaudid ship's surveyor infusing with good pain relief. PT slept most of shift, but is easily arousable. BS very, very hypoactive although pt does report flatus. VOiding without difficulty. Lap site c/d/i. PETERSON drained about 30ml purulent to sero-sang. drainage. Afebrile. B/P hypertensive in the 160's which at the time was likely r/t pain as pt has just ambulated. Tolerating clears without difficulty. Continue with current POC and monitor.
[2017-02-17 06:51] LABS: BASOPHILS % (AUTO) 0.2 % (0-3); EOSINOPHILS % (AUTO) 0.7 % (0-5); Mean Corpuscular Volume 88.3 fL (81-100); NEUTROPHILS % (AUTO) 84.3 % (40-74); Platelet Count 186 bil/L (150-400)
--- NOTE | 2017-02-17 11:36 | PROG NOTE ---
[address] [address] PROGRESS NOTE PATIENT: AMIE WALKER : 1970 MR#: [id number] ADMIT: 02/14/2017 JOB ID: [id number] DATE: 02/17/2017 SUBJECTIVE: This is a 47-year-old woman who underwent a laparoscopic appendectomy for perforated appendicitis two days ago. She is still having moderate tenderness and her p.o. intake has increased to 900 mL yesterday, and 500 in the past shift. Urine output was 1000 mL yesterday and 500 in the past shift. She has had a bowel movement. Her white blood cell count has improved to 13 from 16 yesterday and 20 the day before. PETERSON drain output is 155 mL of serous fluid. OBJECTIVE: Vital signs are within normal limits with the exception of systolic blood pressure of up to 162. General: Awake and alert, mild distress due to abdominal pain. Abdomen: Soft, mild appropriate tenderness, PETERSON in place with serous fluid, incisions are clean, dry and intact. ASSESSMENT: A 47-year-old woman postoperative day two from a laparoscopic appendectomy for perforated appendicitis with both purulent and feculent peritonitis. PLAN: Given overall clinical stability, she will be advanced to full liquid diet today. Zosyn will be continued. Yesterday her creatinine had increased, but today it has decreased to 0.64; I will continue maintenance IV fluids for one more day. Labs will be repeated in the morning. She understands this plan as does her daughter who was also present at the time of my visit today.
[2017-02-17] MEDS: hydrALAZINE 20 mg/mL Inj IV PRN (13:01)
--- NOTE | 2017-02-17 16:20 | NUR ---
HTN Hypertensive, denies headache and is asymptomatic. Surgeon informed; IV hydralazine ordered and given with little effect. Surgeon paged again ~16:15 and informed. Admit hospitalist paged and given surgeon's cell phone number per surgeon's request. No additional new orders at this time.
[2017-02-17] MEDS: HYDROmorphone PCA 0.2 mg/mL 30 mL Inj IV PRN (22:55)
[2017-02-18] VITALS (12 sets, daily range): BP systolic 151–193; BP diastolic 79–119; PULSE 68–97; RESP 16–20; O2SAT 96–98
[2017-02-18] MEDS: D5 0.9% NaCl + KCl 20 mEq/L 1,000 ML IV SCH (01:01)
[2017-02-18] MEDS: Piperacillin-Tazo 3.375 Gm Inj 3.375 GM in Dextrose 5% Minibag Plus 50 ML IV SCH ×3 (04:13→21:02)
--- NOTE | 2017-02-18 04:51 | NUR ---
PAIN; using hat trimmer dilaudid for pain control. Pt slept off and on during the night.
[2017-02-18] MEDS: hydrALAZINE 20 mg/mL Inj IV PRN ×3 (05:11→23:53)
--- NOTE | 2017-02-18 05:14 | NUR ---
CV; pt hypertensive= hydrolazine given.
[2017-02-18 06:06] LABS: Mean Corpuscular Hemoglobin 29.8 pg (27.0-35.0); Mean Corpuscular Volume 87.9 fL (81-100)
[2017-02-18] MEDS ORDERED: Ondansetron 2 mg/mL 2 mL Inj ONE (07:24)
[2017-02-18] MEDS: Ondansetron 2 mg/mL 2 mL Inj IVPUSH PRN ×2 (07:26→18:55)
--- NOTE | 2017-02-18 08:39 | NUR ---
HTN Still hypertensive, despite hydralazine given by NOC RN. Dr Boogie aware, assessed pt at bedside. AM dose of lisinopril given. Pt did vomit afterwards, but no pill was seen in emesis.
--- NOTE | 2017-02-18 08:59 | PROG NOTE ---
[address] [address] PROGRESS NOTE PATIENT: AMIE WALKER : 1970 MR#: [id number] ADMIT: 02/14/2017 JOB ID: [id number] DATE: 02/18/2017 SUBJECTIVE: This is a 47-year-old woman who underwent laparoscopic appendectomy for perforated appendicitis three days ago by my partner, Dr. Josue Garcia. Yesterday, she tolerated 980 mL of oral intake, had good urine output to 2300 mL and had a bowel movement. Drain output is 100 mL of serous fluid. She had notable hypertension, and despite hydralazine it was persistent and therefore she also received 10 mg of lisinopril. Her blood pressure this morning is 193/119. I had plans to advance her diet today given her overall progress, however, she had an episode of vomiting during morning rounds. OBJECTIVE: Vital signs within normal limits except for hypertension with a maximum systolic of 204 and a maximum diastolic of 119. General: Awake and alert, moderate distress this morning as she is nauseated. Abdomen soft, appropriately tender. PETERSON drain with serous output. ASSESSMENT: A 47-year-old woman status post laparoscopic appendectomy for perforated appendicitis, postoperative day three with nausea and hypertension. PLAN: 1. She will continue a full liquid diet today as tolerated, and I have ordered Zofran for control of nausea. LOAN INSPECTOR will be continued for pain control. A CBC will be ordered for repeat in the morning. 2. I have consulted Dr. Bose of the hospitalist service for advice regarding control of her severe hypertension. Her home medication includes 10 mg of amlodipine, but this was not controlling blood pressure either as her last systolic in the clinic was in the 200s.
--- NOTE | 2017-02-18 10:32 | PCM.CHPMED ---
Subjective Date of Service: Feb 18, 2017 Provider requesting consult: Rajeev Boogie MD Primary Physician: Admitting Physician: Jessie Boogie MD Primary Care Physician: Heraclio Patten MD Attending Physician: Jessie Boogie MD Chief Complaint: Chief Complaint: Elevated Blood Pressure History of Present Illness: She has previously been on medication for hypertension but ran out 2 months ago and did not return to her provider for refills. Dr. Boogie is able to access the outpatient records and noted that she had been on amlodipine 10 mg daily and a statin. Patient denies being on any medicine for high cholesterol. She thinks her amlodipine dose might have been higher than 10 mg. She says she is also on metoprolol 50 mg once daily because amlodipine alone was not effective. Yesterday patient was noted to have a blood pressure of 186/106 and was given lisinopril 10 mg. Subsequent blood pressure was 158/88. Early this morning blood pressure was noted to be 182/108 and she received IV hydralazine. Later this morning blood pressure 193/119 and she was given the scheduled dose of lisinopril 10 mg. Subsequent blood pressure has been 188/100. She is currently in the hospital recovering from surgery for ruptured appendix. She is still having some abdominal pain and nausea. She also notes some pressure in the head since yesterday but not really a headache or pain. No changes in her vision other than occasional leave the lights seems brighter. No difficulties with speech and swallowing, no numbness or weakness in any of her extremities. Review of Systems: Negative except as above PMH Past Medical History Hypertension (see history of present illness) Denies heart disease, hyperlipidemia, diabetes, or any other significant medical illnesses Surgical History None until this admission Home Medications She ran out of her medications 2 months ago Allergies: Coded Allergies: No Known Allergies (Unverified Allergy, Unknown, 02/14/17) Family History Family History Mother had hypertension and heart surgery apparently due to valvular heart disease, she at age 64 and patient is not sure of the cause but denies history of heart attack Father had diabetes and at age 64 patient thinks was due to his diabetes, she does not think he had hypertension or heart disease. Social History Hx Alcohol Use: Yes (once or twice a month will have 3-4 beers at parties, no other alcohol)Hx Substance Use: NoHx Tobacco Use: No Smoking Status: Never Smoker Additional Information Has 2 daughters, has lived with her boyfriend for 29 years but they are not . Exam Vital Signs Vital Sign - Last Date Time Temp Pulse Resp B/P Pulse Ox O2 Delivery O2 Flow Rate FiO2 02/18/17 09:40 36.9 77 20 188/100 96 Room Air 02/15/17 14:46 2.00 Intake and Output 02/17/17 02/17/17 02/18/17 Cumulative From/Thru 15:00 23:00 07:00 02/14/17 19:34 - 02/18/17 06:50 Intake Total 1738 ml 1900 ml 74379 ml Output Total 1870 ml 2730 ml 7195 ml Balance -132 ml -830 ml 4100 ml Intake Oral 480 ml 520 ml 2500 ml IV Total 1258 ml 1380 ml 8795 ml Output Urine Total 1800 ml 2650 ml 6550 ml Drainage Total 70 ml 80 ml 595 ml Estimated Blood Loss 50 ml # Voids 2 # Bowel Movements 1 General: Alert, Oriented X3, No Acute Distress Head: Normal Eyes: PERRLA, EOMI Mouth: Mouth Normal, Mucous Membr Moist/[place] Neck: Supple Chest & Lungs: Clear to auscultation & percussion Cardiovascular: Regular Rate/Rhythm, No Murmurs/Rubs/Gallops Pulses: Carotid (normal), Dorsalis Pedis (normal) Abdomen: Tender, Non-distended, Normoactive bowel tones Extremities: Normal bilaterally, No Edema Neurological: Grossly Neurologically Intact, Strength Normal 4/4 ext Lab and Diagnostics Result Diagram: 02/18/17 0540 02/18/17 0540 Assessment & Plan Assessment # Chronic hypertension, noncompliant with therapy, now with acute worsening - Does have a protein of 30 on urinalysis - Continue the lisinopril 10 mg daily that was started yesterday - Begin Amlodipine 10 mg daily - If blood pressure remains significantly elevated we will also add metoprolol 25 mg twice a day # Hyperglycemia - Check hemoglobin A1c with morning labs tomorrow Problems: VTE Mechanical Devices: Intermittant Pneumatic CD Lillie Bose MD Feb 18, 2017 10:32
--- NOTE | 2017-02-18 18:00 | NUR ---
HTN Patient blood pressure was 174/94 at 1630. Patient was administered 10mg IVP Hydralazine. Patient blood pressure rechecked at 1755 and had decreased to 151/79.
[2017-02-18] MEDS: HYDROmorphone PCA 0.2 mg/mL 30 mL Inj IV PRN (20:29)
[2017-02-19 01:00] VITALS: RESP 20; O2SAT 97
--- NOTE | 2017-02-19 03:31 | NUR ---
GI/HTN; nausea at start of shift, decreased after zofran given. Using web content editor dilaudid for pain control. BP decreased to 160/80 after hydralazine given.
[2017-02-19] MEDS: Piperacillin-Tazo 3.375 Gm Inj 3.375 GM in Dextrose 5% Minibag Plus 50 ML IV SCH ×3 (04:01→20:26)
[2017-02-19 04:03] VITALS: BP 156/81; PULSE 70; RESP 16; O2SAT 97
--- NOTE | 2017-02-19 05:56 | NUR ---
GI; client advisor reports pt had a bm x2 during the night.
[2017-02-19 05:58] LABS: Mean Corpuscular Hemoglobin 29.9 pg (27.0-35.0); Mean Corpuscular Volume 85.6 fL (81-100)
--- NOTE | 2017-02-19 06:33 | NUR ---
ACTIVITY; up with daughter ambulating in the hallway at this time.- tolerating well.
--- NOTE | 2017-02-19 07:22 | PCM.PNMED ---
Subjective Date of Service Feb 19, 2017 Subjective No complaints Exam Vital Signs Vital Sign - Last Date Time Temp Pulse Resp B/P Pulse Ox O2 Delivery O2 Flow Rate FiO2 02/19/17 04:03 36.6 70 16 156/81 97 Room Air 02/15/17 14:46 2.00 Intake and Output 02/18/17 02/18/17 02/19/17 Cumulative From/Thru 15:00 23:00 07:00 02/14/17 19:34 - 02/19/17 05:19 Intake Total 1702 ml 358 ml 11541 ml Output Total 3780 ml 320 ml 16668 ml Balance -2078 ml 38 ml 2060 ml Intake Oral 1120 ml 200 ml 3820 ml IV Total 582 ml 158 ml 9535 ml Output Urine Total 3750 ml 300 ml 92379 ml Drainage Total 30 ml 20 ml 645 ml Estimated Blood Loss 50 ml # Voids 1 3 # Bowel Movements 2 3 Exam General: Alert, no acute distress Heart: Regular Lungs: Clear Extremities: No pedal edema IVs and Medications Medications Reviewed: Medications were reviewed in detail Lab and Diagnostics Result Diagram: 02/19/17 0530 02/18/17 0540 Assessment & Plan # Chronic hypertension, noncompliant with therapy, now with acute worsening but now improved - Does have a protein of 30 on urinalysis - Continue the lisinopril 10 mg daily and Amlodipine 10 mg daily - Outpatient follow up to adjust dosing or consider additional med if not adequately controlled - used per diem interpreter to explain to patient she has protein in her urine and possible DM and that if she doesn't follow up and continue on blood pressure medications she will develop renal failure and end up on dialysis # Hyperglycemia - hemoglobin A1c pending - discussed with patient via per diem interpreter, including the importance of avoiding processed food and high sugar food and losing weight - provide with information on diabetic diet VTE Mechanical Devices: Intermittant Pneumatic CD Lillie Bose MD Feb 19, 2017 07:22
--- NOTE | 2017-02-19 07:59 | PROG NOTE ---
[address] [address] PROGRESS NOTE PATIENT: AMIE WALKER : 1970 MR#: [id number] ADMIT: 02/14/2017 JOB ID: [id number] DATE: 02/19/2017 SUBJECTIVE: The patient is seen in followup. She is significantly improved. She had several bowel movements overnight. She has no nausea. Her pain is minimal. OBJECTIVE: Temperature 36.6, blood pressure 156/81, pulse 70, saturation 97% on room air. General: She is sitting up in bed, in no acute distress. Chest is clear. Heart regular rate and rhythm, no murmurs. Abdomen is soft, mildly distended. Her incisions are clean with no erythema. PETERSON drain is putting out clear serous fluid. Output overnight was 20 cc. Output yesterday was 110 cc. LABORATORIES: White blood cell count is 8.3, hematocrit 39.8, platelets 274. ASSESSMENT AND PLAN: A 47-year-old woman with severe perforated appendicitis with focal feculent peritonitis and diffuse purulent peritonitis, status post laparoscopic appendectomy. She is doing well. I think she could be potentially discharged from the hospital tomorrow. Her PETERSON drain will likely be removed before she leaves. She should complete a two-week course of antibiotics because of a complicated intraabdominal infection. She will be switched to oral pain medicines today. Hospitalist assistance with her poorly managed hypertension is appreciated.
[2017-02-19] MEDS: HYDROcodone-APAP 5-325 mg Tablet PO PRN ×4 (08:29→20:19)
[2017-02-19 08:30] VITALS: BP 194/106; PULSE 68; RESP 16; O2SAT 97
[2017-02-19 10:15] VITALS: BP 160/81; PULSE 79; RESP 18; O2SAT 97
--- NOTE | 2017-02-19 12:23 | NUR ---
Social Work: Discharge D: EMR reviewed. Pt is on day 5 of hospitalization. Per MD in AM multi-disciplinary rounds, pt is medically stable and will discharge today. Pt to discharge home via POV. No discharge needs anticipated. SW will continue to follow. A: Pt who is independent at baseline. P: Pt to discharge home today. Pt is independent at baseline. SW anticipates pt to discharge home via POV. No discharge needs anticipated. SW will continue to follow. EDILBERTO Galvan
[2017-02-19 16:02] VITALS: BP 160/91; PULSE 66; RESP 16; O2SAT 97
--- NOTE | 2017-02-19 17:33 | NUR ---
POST-OP PROGRESS COMPUTER ENGINEERING TECHNICIAN d/cd. Transitioned to PO pain medication. Hydrocodone has been helpful for pain control. Patient stated that 4/10 is a tolerable pain level for her. Tolerating full liquids. Diet will be advanced to a general for dinner. Denies nausea. No emesis noted. Denies SOB. Patient has been able to ambulate and transfer independently in the room. Steri strips is CDI. PETERSON intact and draining to a minimal amount of serous output. Voiding without any problems.
[2017-02-19 19:40] VITALS: BP 169/91; PULSE 71; RESP 17; O2SAT 97
[2017-02-20] MEDS: HYDROcodone-APAP 5-325 mg Tablet PO PRN ×2 (01:51→07:36)
[2017-02-20 03:14] VITALS: BP 164/93
[2017-02-20] MEDS: hydrALAZINE 20 mg/mL Inj IV PRN (03:17)
--- NOTE | 2017-02-20 03:48 | NUR ---
Pain/ Hypertension Pt. rates pain 11/27. 1 [place] PO effective for pain. Pt. was hypertensive earlier while in pain. Pt.'s BP checked once lying in bed after sleeping, and systolic was still above 160, so IV Hydralazine given. Will continue to monitor.
[2017-02-20] MEDS: Piperacillin-Tazo 3.375 Gm Inj 3.375 GM in Dextrose 5% Minibag Plus 50 ML IV SCH (05:01)
[2017-02-20 05:28] VITALS: BP 151/81; PULSE 73; RESP 16; O2SAT 96
[2017-02-20] MEDS ORDERED: POLY17PO6 PO (10:03)
[2017-02-20] MEDS ORDERED: ACET325T51 PO (10:03)
[2017-02-20] MEDS ORDERED: AMLO5TAB2 PO (10:03)
[2017-02-20] MEDS ORDERED: HYDR-4003 PO (10:03)
[2017-02-20] MEDS ORDERED: LISI-610 PO (10:03)
[2017-02-20] MEDS ORDERED: ONDA4VIA27 PO (10:03)
[2017-02-20] MEDS ORDERED: AMOX-366 PO (10:03)
--- NOTE | 2017-02-20 10:14 | PCM.DISURG ---
Surgical Discharge Instruction Date of Service Feb 20, 2017 Dates of Hospitalization Date of Hospital Admission Feb 14, 2017 at 23:59 Providers Admitting Physician: Josue Garcia MD Primary Care Physician: Heraclio Patten MD Attending Physician: Josue Garcia MD Discharge Diagnosis Post Operative diagnosis Acute perforated appendicitis with feculent and diffuse purulent peritonitis Diet Discharge Diet: No restrictions Activity Discharge Activity-General: Activity as pain allows, Restrict lifting to no greater than (15 pounds for 4 weeks), No driving while taking narcotic Dressing and Incisional Care Dressing Care: Keep dressing clean, dry & intact, Allow Steri Stripes to fall off Hygiene: May shower, DO NOT soak incision under water, NO bathtub, hot tub or whirlpool Additional Instructions Discharge Instructions Please take your antibiotics until they are gone. We would like to see you back in clinic in 7-10 days. Additional Instructions Please make sure you follow up with your primary care doctor to discuss your high blood pressure. Follow Up Plan Follow-up appointment: Days (7-10 days) Call your provider for: Fever, Chills, Increasing abdominal pain, Nausea, Vomiting, Wound redness, Increasing wound pain, Discharge @ incision, pus discharge Gennaro Sextno MD Feb 20, 2017 10:13
--- NOTE | 2017-02-20 10:47 | NUR ---
Social Work- Discharge Data: EMR reviewed. Pt is on d ay 6 of hospitalization. Pt was anticipated to discharge home yesterday, per surgery pt will be transitioned to oral abx and is likely to discharge today. Pt's discharge orders are active at this time. Hospitalist is managing pt's hypertension. Pt's PETERSON drain to be removed prior to discharge. Pt to discharge home via POV, no discharge needs identified at this time. Assessment: Pt who is independent at baseline. Plan: Pt's discharge orders are active. Pt to discharge home via POV, no discharge needs identified at this time. EDILBERTO Shin
--- NOTE | 2017-02-20 13:30 | NUR ---
discharged home with family. Went over discharge instructions with her with an want ad receiver, because Kyrgyz is her second language. She will have f/u appts with Dr Garcia in 7-10 days and also with her PCP in 7-10 days re; her hypertension. She is eating/drinking, good pain control, ambulating, passing gas. Has several new prescriptions, including BP Rx
--- NOTE | 2017-02-20 14:58 | PCM.DC.MED ---
Discharge Summary Date of Service Feb 20, 2017 Dates of Hospitalization Date of Hospital Admission Feb 14, 2017 at 23:59 Date of Discharge: Feb 20, 2017 Providers: Admitting Physician: Josue Garcia MD Primary Care Physician: Heraclio Patten MD Attending Physician: Otf Cabrera MD Diagnosis at Time of Discharge Diagnosis at Time of Discharge Appendicitis Hypertension Hyperlipidemia Hyperglycemia Consultations [address] [address] Medical Consultation PATIENT NAME: AMIE WALKER : 1970 MR#: [id number] Subjective Date of Service: Feb 18, 2017 Provider requesting consult: Rajeev Boogie MD Primary Physician: Admitting Physician: Jessie Boogie MD Primary Care Physician: Heraclio Patten MD Attending Physician: Jessie Boogie MD Chief Complaint: Chief Complaint: Elevated Blood Pressure History of Present Illness: She has previously been on medication for hypertension but ran out 2 months ago and did not return to her provider for refills. Dr. Boogie is able to access the outpatient records and noted that she had been on amlodipine 10 mg daily and a statin. Patient denies being on any medicine for high cholesterol. She thinks her amlodipine dose might have been higher than 10 mg. She says she is also on metoprolol 50 mg once daily because amlodipine alone was not effective. Yesterday patient was noted to have a blood pressure of 186/106 and was given lisinopril 10 mg. Subsequent blood pressure was 158/88. Early this morning blood pressure was noted to be 182/108 and she received IV hydralazine. Later this morning blood pressure 193/119 and she was given the scheduled dose of lisinopril 10 mg. Subsequent blood pressure has been 188/100. She is currently in the hospital recovering from surgery for ruptured appendix. She is still having some abdominal pain and nausea. She also notes some pressure in the head since yesterday but not really a headache or pain. No changes in her vision other than occasional leave the lights seems brighter. No difficulties with speech and swallowing, no numbness or weakness in any of her extremities. Review of Systems: Negative except as above PMH Past Medical History Hypertension (see history of present illness) Denies heart disease, hyperlipidemia, diabetes, or any other significant medical illnesses Surgical History None until this admission Home Medications She ran out of her medications 2 months ago Allergies: Coded Allergies: No Known Allergies (Unverified Allergy, Unknown, 02/14/17) Family History Family History Mother had hypertension and heart surgery apparently due to valvular heart disease, she at age 64 and patient is not sure of the cause but denies history of heart attack Father had diabetes and at age 64 patient thinks was due to his diabetes, she does not think he had hypertension or heart disease. Social History Hx Alcohol Use: Yes (once or twice a month will have 3-4 beers at parties, no other alcohol)Hx Substance Use: NoHx Tobacco Use: No Smoking Status: Never Smoker Additional Information Has 2 daughters, has lived with her boyfriend for 29 years but they are not . Exam Vital Signs Vital Sign - Last Date Time Temp Pulse Resp B/P Pulse Ox O2 Delivery O2 Flow Rate FiO2 02/18/17 09:40 36.9 77 20 188/100 96 Room Air 02/15/17 14:46 2.00 Intake and Output 02/17/17 02/17/17 02/18/17 Cumulative From/Thru 15:00 23:00 07:00 02/14/17 19:34 - 02/18/17 06:50 Intake Total 1738 ml 1900 ml 61230 ml Output Total 1870 ml 2730 ml 7195 ml Balance -132 ml -830 ml 4100 ml Intake Oral 480 ml 520 ml 2500 ml IV Total 1258 ml 1380 ml 8795 ml Output Urine Total 1800 ml 2650 ml 6550 ml Drainage Total 70 ml 80 ml 595 ml Estimated Blood Loss 50 ml # Voids 2 # Bowel Movements 1 General: Alert, Oriented X3, No Acute Distress Head: Normal Eyes: PERRLA, EOMI Mouth: Mouth Normal, Mucous Membr Moist/[place] Neck: Supple Chest & Lungs: Clear to auscultation & percussion Cardiovascular: Regular Rate/Rhythm, No Murmurs/Rubs/Gallops Pulses: Carotid (normal), Dorsalis Pedis (normal) Abdomen: Tender, Non-distended, Normoactive bowel tones Extremities: Normal bilaterally, No Edema Neurological: Grossly Neurologically Intact, Strength Normal 4/4 ext Lab and Diagnostics Result Diagram: 02/18/17 0540 02/18/17 0540 Assessment & Plan Assessment # Chronic hypertension, noncompliant with therapy, now with acute worsening - Does have a protein of 30 on urinalysis - Continue the lisinopril 10 mg daily that was started yesterday - Begin Amlodipine 10 mg daily - If blood pressure remains significantly elevated we will also add metoprolol 25 mg twice a day # Hyperglycemia - Check hemoglobin A1c with morning labs tomorrow Problems: VTE Mechanical Devices: Intermittant Pneumatic CD Lillie Bose MD Feb 18, 2017 10:32 Procedures XRay, CTs & MRIs [facility] [place] [address] Patient Name: AMIE WALKER MR#: [id number] Location: [facility] Ordering Phys: Noah London DO Date of Service: 02/14/172122 PROCEDURE: CT ABDOMEN AND PELVIS WITH CONTRAST ([id number]) INDICATIONS: diffuse pain, 20WBC count TECHNIQUE: After the administration of intravenous contrast, 5 mm thick sections acquired from the diaphragm to the symphysis. 5 mm coronal and sagittal reformats were acquired. For radiation dose reduction, the following was used: automated exposure control, adjustment of mA and/or kV according to patient size. COMPARISON: None. FINDINGS: Image quality: Excellent. ABDOMEN: Lung bases: Lung bases are clear. Heart size is normal. Solid organs: Liver and spleen are normal in size and enhancement. Fatty infiltration of the liver is noted. Gallbladder is within normal limits. Biliary system is non dilated. Pancreas enhances normally. 1.4 cm left adrenal nodule is noted left adrenal nodule has density measurements of 50 HU. Kidneys demonstrate normal size and enhancement, without hydronephrosis. Peritoneum and bowel: Bowel loops demonstrate normal wall thickness and caliber. Small amount free fluid noted in the cul-de-sac of the pelvis. No free air. The appendix is enlarged measuring 1.7 cm in maximum diameter. The appendix contains small appendicoliths. Mild inflammatory changes noted adjacent to the enlarged appendix. Nodes and vessels: No retroperitoneal or mesenteric adenopathy by size criteria. Aorta and inferior vena cava are normal in size. Miscellaneous: No ventral hernias. PELVIS: Genitourinary: Bladder wall thickness is normal. Intrauterine device noted. Miscellaneous: No inguinal hernias or adenopathy. Bones: No suspicious bony lesions. No vertebral body compression fractures. IMPRESSION: 1. Findings compatible with acute appendicitis. 2. 1.4 cm soft tissue density left adrenal nodule. Recommend dedicated CT scan or MRI scan of the adrenal glands for definitive characterization. 3. Hepatic steatosis. Invasive Procedures [id number] [place] [address] Surgical Operative Note PATIENT NAME: AMIE WALKER : 1970 MR#: [id number] Surgical Operative Report Date of Service: Feb 15, 2017 Pre Operative Diagnosis Acute appendicitis Post Operative Diagnosis Acute perforated appendicitis with feculent and diffuse purulent peritonitis Procedure: Laparoscopic appendectomy Surgeon and Plate Grainer: Surgeon: Josue Garcia MD Assistants: Toni Crawford PA-C Indication for Procedure 47-year-old woman who presented to the emergency department with 24 hours of abdominal pain and vomiting. She was febrile. She had a white blood cell count of 20,000. Her imaging studies showed findings consistent with acute appendicitis with some free fluid in the pelvis. She had diffuse peritonitis on abdominal exam. After discussion of risks and benefits, she agreed to proceed with laparoscopic appendectomy. Findings: The appendix was perforated near the base. There was feculent peritonitis in the region of the appendix, and diffuse purulent peritonitis. Procedure Details After smooth induction of general endotracheal anesthesia, the patient was placed in the supine position with the left arm tucked. The abdomen was prepped and draped in wide sterile fashion. A procedural pause was performed according to the SCOAP checklist, and all were found to be in agreement. A curvilinear infraumbilical incision was made. Dissection was carried down to electrocautery until the midline fascia was incised vertically and the peritoneal cavity was entered without difficulty. Pneumoperitoneum was established. Two additional ports were placed under visualization. A 5 mm port was placed in the midline above the symphysis pubis, and a 12 mm port in the left lower quadrant, lateral to the inferior epigastric vessels. The patient was placed head down with the right side up. The small bowel was retracted, which was difficult because she had significant dilation of small bowel loops. In order to provide adequate exposure of the appendix, a fourth port needed to be placed, which was placed at the level of the umbilicus in the right abdomen. There was feculent peritonitis around the appendix, with several small stool balls. There was diffuse purulent peritonitis. The mesoappendix was isolated and divided with a vascular load of the Endo ALFREDO 45 mm stapler. There was some bleeding from the mesoappendix, which was controlled with electrocautery. The appendix was then mobilized and dissected from the surrounding structures until the base of the appendix was skeletonized. There was a perforation, fairly close to the appendiceal base, but there was healthy stump for application of the stapler. The Endo ALFREDO stapler was used with a 45 mm blue load to divide the appendiceal stump. The appendix was placed into an Endo Catch bag. The right lower quadrant and pelvis was irrigated and suctioned extensively with saline. The appendiceal stump was intact and the mesoappendix was hemostatic. The appendix was removed and passed off the field for permanent pathology. A 19 Swedish round PETERSON drain was brought out through the right mid abdominal port site, positioned along the appendiceal fossa and into the pelvis, and secured to the skin with a 2-0 nylon stitch. The 12 mm port was removed. The fascia of the 12 mm port site was closed using an inlet closure device with an 0 Vicryl suture. The remaining ports were removed under visualization and pneumoperitoneum was released. The skin incisions were closed using running 4-0 Monocryl subcutaneous stitches. Steri-Strips and sterile dressings were applied. At the end of the case all needle and sponge counts were correct 2. The patient was awakened from anesthesia without difficulty, and taken to the recovery room in satisfactory condition, having tolerated the procedure well. Complications There were no periprocedural complications identified. Surgical Specimen Removed: Yes Specimen sent to Pathology: Yes Surgical Specimen description: Appendix Anesthetic Plan: GA Grafts, Implants: None Output, Estimated Blood Loss: 50 Blood Administration during jeffery: No Drains: PETERSON Drain #1 Catheters: None copies to: Heraclio Patten MD, Joshua D MD Brief History The patient is a 47-year-old, woman who presented to the emergency department last night. She had developed sudden onset of severe abdominal pain that started yesterday morning. The pain is mostly located on her right side; although this morning, she is describing diffuse abdominal pain. She also reportedly had approximately eight episodes of vomiting yesterday. She has had off and on fevers. She has not had any blood in her stool. In the emergency department, she underwent a CT scan of the abdomen and pelvis. The report from that CT is not available, but it shows a markedly dilated appendix with appendicolith, as well as a small amount of free fluid in the pelvis and some periappendiceal fat stranding. Findings are consistent with acute appendicitis. Hospital Course # Chronic hypertension, noncompliant with therapy - Does have a protein of 30 on urinalysis -Increase the lisinopril to 20 mg daily and continue Amlodipine 10 mg daily - Outpatient follow up to adjust dosing or consider additional med if not adequately controlled # Hyperglycemia - hemoglobin A1c 5.6 - discussed with patient via greenhouse laborer, including the importance of avoiding processed food and high sugar food and losing weight - provide with information on diabetic diet Post Operative diagnosis Acute perforated appendicitis with feculent and diffuse purulent peritonitis Exam Vital Signs (Last) Date Time Temp Pulse Resp B/P Pulse Ox O2 Delivery O2 Flow Rate FiO2 02/20/17 05:28 36.7 73 16 151/81 96 Room Air 02/15/17 14:46 2.00 Exam She is alert and oriented 3 without apparent distress. Heart is regular rate and rhythm without murmur Lungs are clear to auscultation bilaterally Abdomen soft, bowel sounds positive, mild left lower quadrant tenderness, no organomegaly. Extremities no ankle edema Test 02/14/17 21:00 02/14/17 22:12 02/14/17 22:20 02/17/17 05:25 Magnesium Level 1.6mg/dL (1.6-2.6) Lipase 12U/L (13-60) Hold Campuzano Top Tube Received (Received) Hold Urine Received (Received) Urine Color Yellow (YELLOW) Urine Appearance Clear (CLEAR,HAZY) Urine pH 7.0 (5.0-8.0) Urine Specific [place] 1.015 (1.003-1.035) Urine Protein 30mg/dL (NEG,TRACE) Urine Glucose (UA) Negativemg/dL (NEGATIVE) Urine Ketones 15mg/dL (NEGATIVE) Urine Occult Blood Small (NEGATIVE) Urine Nitrite Negative (NEGATIVE) Urine Bilirubin Negative (NEGATIVE) Urine Urobilinogen Normalmg/dL (NORMAL) Urine Leukocyte Esterase Negative (NEGATIVE) Urine RBC 3-10/hpf (0-2) Urine WBC 0-5/hpf (0-5) Urine Epithelial Cells Occasional/hpf (NONE-MOD) Urine Crystals None seen (NONE SEEN) Urine Bacteria Few/hpf (NONE-FEW) Urine Hyaline Casts Rare/lpf (NONE) Urine Granular Casts None seen (NONE SEEN) Urine Waxy Casts None seen (NONE SEEN) Urine Red Blood Cell Casts None seen (NONE SEEN) Urine White Blood Cell Casts None seen (NONE SEEN) Urine Mucus None seen (None Seen) Urine Trichomonas None seen (NONE SEEN) Urine Yeast None (NONE SEEN) Urinalysis Comment None Urine Culture Reflexed Not indicated Neutrophils (%) (Auto) 84.3% (40-74) Lymphocytes (%) (Auto) 10.4% (14-46) Monocytes (%) (Auto) 4.0% (4-12) Eosinophils (%) (Auto) 0.7% (0-5) Basophils (%) (Auto) 0.2% (0-3) Total Bilirubin 1.0mg/dL (0.0-1.2) Aspartate Amino Transf (AST/SGOT) 18U/L (0-50) Alanine Aminotransferase (ALT/SGPT) 16U/L (0-32) Alkaline Phosphatase 102U/L (25-150) Total Protein 5.7g/dL (6.4-8.4) Albumin 2.5g/dL (3.4-5.0) Test 02/18/17 05:40 02/19/17 05:30 Sodium Level 138mEq/L (134-144) Potassium Level 4.0mEq/L (3.5-5.2) Chloride Level 104mEq/L (97-108) Carbon Dioxide Level 22mmol/L (18-29) Blood Urea Nitrogen 6mg/dL (6-24) Creatinine 0.39mg/dL (0.57-1.00) Estimat Glomerular Filtration Rate 255mL/min (>59) Glucose Level 143mg/dL (60-99) Calcium Level 8.2mg/dL (8.5-10.1) White Blood Count 8.3th/mm3 (3.8-10.1) Red Blood Count 4.65mil/mm3 (3.90-5.20) Hemoglobin 13.9g/dL (12.0-15.6) Hematocrit 39.8% (35.0-46.0) Mean Corpuscular Volume 85.6fL (81-100) Mean Corpuscular Hemoglobin 29.9pg (27.0-35.0) Mean Corpuscular Hemoglobin Concent 34.9% (32.0-37.0) Red Cell Distribution Width 12.7% (12.3-15.4) Platelet Count 274bil/L (150-400) Hemoglobin A1c 5.6% (4.8-5.6) Discharge Medications Discharge Medications Amlodipine (Amlodipine) 5 Mg Tablet 10 MG PO DAILY Prescribed by: GERALDINE GONZALES MD Amoxicillin/Clav K 875-125 mg (Augmentin 875-125 mg) 1 Each Tablet 1 TABLET PO BID Prescribed by: GERALDINE GONZALES MD Lisinopril (Zestril) 10 Mg Tablet 20 MG PO DAILY Prescribed by: GERALDINE GONZALES MD As needed Acetaminophen (Acetaminophen) 325 Mg Tablet 650 MG PO Q6 hours PRN PRN For Pain Prescribed by: GERALDINE GONZALES MD Hydrocodone-Acetaminophen 5-325 mg (Hydrocodone-Acetaminophen 5-325 mg) 1 Each Tablet 1 TABLET PO Q4H PRN PRN For Pain Prescribed by: GERALDINE GONZALES MD Ondansetron PF (Ondansetron PF) 4 Mg/2 Ml Vial 4 MG PO Q4H PRN PRN For Nausea/ Vomiting Prescribed by: GERALDINE GONZALES MD Polyethylene Glycol 3350 (Miralax) 17 Gm Powd.pack 17 GM PO DAILY PRN PRN Constipation Prescribed by: GERALDINE GONZALES MD Followup Plan Follow-up plan Activity Discharge Activity-General: Activity as pain allows, Restrict lifting to no greater than (15 pounds for 4 weeks), No driving while taking narcotic Dressing and Incisional Care Dressing Care: Keep dressing clean, dry & intact, Allow Steri Stripes to fall off Hygiene: May shower, DO NOT soak incision under water, NO bathtub, hot tub or whirlpool Additional Instructions Discharge Instructions Please take your antibiotics until they are gone. We would like to see you back in clinic in 7-10 days. Additional Instructions Please make sure you follow up with your primary care doctor to discuss your high blood pressure. Discharge Diet: No restrictions Discharge Activity: No restrictions Follow-up Provider: Heraclio Patten MD Follow-up with PCP in: 1 week Provider: Jessie Boogie MD Follow-up in: 1 week Charo Cabrera MD Feb 20, 2017 11:29
--- NOTE | 2017-02-20 23:47 | PCM.DC.SUR ---
Discharge Summary Date of Service: Feb 20, 2017 Date of Hospital Admission: Feb 14, 2017 at 23:59 Date of Operation(s): February 15, 2017 Date of Discharge: February 20, 2017 Brief History and Physical: 47-year-old woman who presented to the emergency department with 24 hours of abdominal pain and vomiting. She was febrile. She had a white blood cell count of 20,000. Her imaging studies showed findings consistent with acute appendicitis with some free fluid in the pelvis. She had diffuse peritonitis on abdominal exam. After discussion of risks and benefits, she agreed to proceed with laparoscopic appendectomy. Consultants: Hospital medicine Hospital Course: The patient was taken to the operating room for a laparoscopic appendectomy. The procedure was completed without complication but it should be noted that feculent peritonitis was encountered so a drain was placed. Following this, the patient was admitted to the general surgery floor for intensive nursing care , pain control, and dietary management. Over the ensuing hospital stay, the patient's diet was systemically reintroduced with excellent tolerance of a regular diet by the date of discharge, in the absence of nausea, vomiting, or worsening abdominal pain. She resumed normal and spontaneous bowel and bladder function. Her pain was transitioned to an oral only narcotic regimen. Her drain output diminished and appeared serosanguinous so was removed prior to DC. She remained on IV antibiotics while in the hospital and her WBC normalized from 20 on admission to 8.3. She remained afebrile. Of note, the patient was quite hypertensive early in her hospital course. She was therefore started on amlodipine and lisinopril per recommendations of our hospitalist colleagues with improvement in her blood pressure. On the date of discharge, the patient had met or exceeded all criteria for a safe discharge to home. She was given strict return precautions. She will continue a course of PO augmentin for a total of 14 days of antibiosis. Disposition: Home Acetaminophen (Acetaminophen) 325 Mg Tablet 650 MG PO Q6 hours PRN PRN For Pain Amlodipine (Amlodipine) 5 Mg Tablet 10 MG PO DAILY Amoxicillin/Clav K 875-125 mg (Augmentin 875-125 mg) 1 Each Tablet 1 TABLET PO BID Hydrocodone-Acetaminophen 5-325 mg (Hydrocodone-Acetaminophen 5-325 mg) 1 Each Tablet 1 TABLET PO Q4H PRN PRN For Pain Lisinopril (Zestril) 10 Mg Tablet 20 MG PO DAILY Ondansetron PF (Ondansetron PF) 4 Mg/2 Ml Vial 4 MG PO Q4H PRN PRN For Nausea/ Vomiting Polyethylene Glycol 3350 (Miralax) 17 Gm Powd.pack 17 GM PO DAILY PRN PRN Constipation Gennaro Sexton MD Feb 20, 2017 23:47
--- NOTE | 2017-02-21 11:22 | PATH ---
SURGICAL PATHOLOGY Attending Physician:Tello Chau CASE STATUS: Signed Out PATIENT NAME: AMIE WALKER PID: [id number] : 1970 DATE COLLECTED:02/15/2017 00:00 SPECIMEN: Appendix CLINICAL HISTORY: ACUTE APPENDICITIS 1). APPENDIX FINAL DIAGNOSIS: Appendix: Severe necrotizing acute appendicitis. Negative for gross evidence of perforation. ICD10: K35.80 GROSS DESCRIPTION: The specimen is received in formalin, labeled with the patient's name, sublabeled as appendix, and consists of an intact perforated appendix (length-9.3 cm, diameter-1.2 cm) with attached mesoappendix (up to 2.1 cm in depth). The resection margin is received stapled. The serosa is romero-pink smooth and shiny and partially covered in romero-yellow flaky friable exudate. The lumen contains red-brown solid soft material. The wall is up to 0.4 cm thick and is perforated 0.8 cm from the resection margins. No nodules, masses or lesions are identified. Ink code: black-proximal. Section code: (A) appendix, printing sales representative. 02/17/17 RYAN ICD-9 CODES: CPT CODES: 1: 18045 Electronically Signed Out Jeronimo Andujar MD [facility] [address], [place] [address] Technical component performed at [facility], [address] [place] [address] Ave[address], [place], [address]
== END 2017-02-20 14:00 | disposition home or self-care (01) | DRG 340 ==
LOC: SED 19:30 → OSC 23:59 → OBSVTOIN 23:59
PROVIDERS: ADMIT Student in an Organized Health Care Education/Training Program; ATTEND Student in an Organized Health Care Education/Training Program
PROC: 0DTJ4ZZ Resection of Appendix, Percutaneous Endoscopic Approach (ICD-10-PCS; principal; 2017-02-15 11:00)
DX: K35.2 Acute appendicitis with generalized peritonitis (principal); I10 Essential (primary) hypertension; R73.9 Hyperglycemia, unspecified